=== PATIENT | male | born 1950 | race Two or more races ===

== ENCOUNTER 2021-02-03 15:22 | Inpatient (IN) | payer MEDICARE, OTHER ==
[~2021-02-03] VITALS: Ht 170.2 cm; Wt 78.5 kg
[2021-02-03 16:17] LABS: BASOPHILS % 0.4 % (0.0-2.0); EOSINOPHILS % 0.1 % (0.0-5.0); HEMATOCRIT. 43.6 % (42.0-52.0); HEMOGLOBIN. 14.6 g/dL (14.0-18.0); LYMPHOCYTES % 9.6 % (20.0-50.0); MEAN CORPUSCULAR HEMOGLOBIN 30.9 pg (28.0-32.0); MEAN CORPUSCULAR VOLUME 92.3 fL (80.0-94.0); MONOCYTES % 6.6 % (2.0-8.0); NEUTROPHILS % 83.3 % (40.0-76.0); PLATELET 206 x1000/uL (130-400); RED BLOOD CELL COUNT 4.73 mill/uL (4.7-6.1); RED CELL DISTRIBUTION WIDTH 13.9 % (11.6-14.6)
[2021-02-03 16:24] LABS: CHLORIDE 107 mEq/L (98-107)
[2021-02-03 16:28] LABS: ETHANOL BLOOD < 10 mg/dL
[2021-02-03 17:32] LABS: CLARITY URINE CLEAR (CLEAR); COLOR URINE YELLOW (YELLOW); KETONES URINE NEGATIVE (NEGATIVE); LEUKOCYTE ESTERASE URINE NEGATIVE (NEGATIVE); NITRITE URINE POSITIVE (NEGATIVE); OCCULT BLOOD URINE 1+ (NEGATIVE); PROTEIN URINE 2+ (NEGATIVE); SPECIFIC GRAVITY URINE 1.047 (1.005-1.030); UROBILINOGEN URINE 0.2 E.U./dL (0.2-1.0)
[2021-02-03 17:48] LABS: *BARBITURATES SCREEN URINE NEGATIVE (NEGATIVE); *BENZODIAZEPINES SCREEN URINE NEGATIVE (NEGATIVE); *COCAINE SCREEN URINE NEGATIVE (NEGATIVE); METHADONE URINE SCREEN NEGATIVE (NEGATIVE)
[2021-02-03 17:50] LABS: *AMPHETAMINES SCREEN URINE NEGATIVE (NEGATIVE); CANNABINOID URINE SCREEN NEGATIVE (NEGATIVE); OPIATES URINE SCREEN NEGATIVE (NEGATIVE); PHENCYCLIDINE URINE SCREEN NEGATIVE (NEGATIVE)
[2021-02-03] MEDS ORDERED: HYDROCODONE/ACETAMINOPHEN 5/325MG TABLET PO PRN (20:15)
[2021-02-03] MEDS ORDERED: GUAIFENESIN 200MG/10ML SUGAR FREE UDC PO PRN (20:15)
[2021-02-03] MEDS ORDERED: ASPIRIN 300MG SUPP PR NR (20:15)
[2021-02-03] MEDS ORDERED: ACETAMINOPHEN 325MG TABLET PO PRN (20:15)
[2021-02-03] MEDS ORDERED: ONDANSETRON HCL 4MG/2ML INJ IV PRN (20:15)
[2021-02-03] MEDS ORDERED: IPRATROPIUM/ALBUTEROL 0.5-3(2.5)MG/3ML NEB HHN PRN (20:15)
[2021-02-03] MEDS ORDERED: MORPHINE SULFATE 2 MG/ML CPJ (NOT FOR IM USE) IV PRN (20:15)
[2021-02-03] MEDS ORDERED: DIPHENHYDRAMINE 50MG/ML VIAL IV PRN (20:15)
[2021-02-03] MEDS ORDERED: HYDRALAZINE 20MG/ML VIAL IV PRN (20:15)
[2021-02-03] MEDS ORDERED: DOCUSATE SODIUM 100MG CAPSULE PO PRN (20:15)
[2021-02-03] MEDS ORDERED: MAGNESIUM/ALUMINUM HYDROXIDE/SIMETHICONE 30ML UDC PO PRN (20:15)
[2021-02-03] MEDS: DEXT 5%/0.45% NACL 1000ML 1,000 ML IV SCH (20:15)
[2021-02-03] MEDS ORDERED: CEFAZOLIN 1000MG PREMIX 50 ML IV NR (20:15)
[2021-02-03] MEDS ORDERED: LORAZEPAM 2MG/ML CPJ IV PRN (20:15)
[2021-02-03] MEDS ORDERED: CLONIDINE 0.1MG TABLET PO PRN (20:15)
[2021-02-03] MEDS: ENOXAPARIN 40MG/0.4ML SYR SUBCUT SCH (21:00)
[2021-02-03] MEDS ORDERED: IOHEXOL-350 100 ML BOTTLE ONE (21:17)
[2021-02-04 00:41] VITALS: BP 105/72
[2021-02-04] MEDS: SODIUM CHLORIDE 0.9% INJ 3ML FLUSH IVF SCH ×4 (03:18→20:28)
[2021-02-04] MEDS: DEXT 5%/0.45% NACL 1000ML 1,000 ML IV SCH ×2 (03:20→03:21)
[2021-02-04 04:00] VITALS: BP 119/73
[2021-02-04 07:13] LABS: BASOPHILS % 0.5 % (0.0-2.0); EOSINOPHILS % 0.4 % (0.0-5.0); HEMATOCRIT. 41.7 % (42.0-52.0); HEMOGLOBIN. 14.4 g/dL (14.0-18.0); LYMPHOCYTES % 10.8 % (20.0-50.0); MEAN CORPUSCULAR HEMOGLOBIN 32.2 pg (28.0-32.0); MEAN CORPUSCULAR VOLUME 93.3 fL (80.0-94.0); MEAN PLATELET VOLUME 9.5 fl (7.4-10.4); MONOCYTES % 7.3 % (2.0-8.0); PLATELET 196 x1000/uL (130-400); RED BLOOD CELL COUNT 4.47 mill/uL (4.7-6.1); RED CELL DISTRIBUTION WIDTH 13.9 % (11.6-14.6)
[2021-02-04 08:00] VITALS: BP 150/75
[2021-02-04] MEDS: ASPIRIN 81MG EC TABLET PO SCH (09:35)
[2021-02-04 11:57] LABS: T4 FREE 1.18 ng/dL (0.76-1.46)
[2021-02-04 12:00] VITALS: BP 156/82
[2021-02-04 12:07] LABS: CHLORIDE 108 mEq/L (98-107); HDL CHOLESTEROL 66 mg/dL (40-59); LDL CHOLESTEROL 67 mg/dL (5-100)
[2021-02-04] MEDS ORDERED: POTASSIUM CHLORIDE 20MEQ TABLET SR PO NR (15:00)
[2021-02-04 16:00] VITALS: BP 110/74
[2021-02-04 17:18] LABS: CREATINE KINASE MB FRACTION 2.7 ng/mL (0.5-3.6)
[2021-02-04 17:19] LABS: CREATINE KINASE 299 IU/L (39-308)
[2021-02-04 20:00] VITALS: BP 146/65
[2021-02-04] MEDS: ENOXAPARIN 40MG/0.4ML SYR SUBCUT SCH (20:28)
[2021-02-05] VITALS: BP 156/71
[2021-02-05 04:00] VITALS: BP 152/68
[2021-02-05] MEDS: SODIUM CHLORIDE 0.9% INJ 3ML FLUSH IVF SCH ×3 (05:26→22:00)
[2021-02-05] MEDS: DEXT 5%/0.45% NACL 1000ML 1,000 ML IV SCH (05:27)
[2021-02-05 07:05] LABS: BASOPHILS % 0.4 % (0.0-2.0); EOSINOPHILS % 0.7 % (0.0-5.0); HEMATOCRIT. 44.4 % (42.0-52.0); LYMPHOCYTES % 16.1 % (20.0-50.0); MEAN CORPUSCULAR HEMOGLOBIN 31.5 pg (28.0-32.0); MEAN CORPUSCULAR VOLUME 93.2 fL (80.0-94.0); MEAN PLATELET VOLUME 9.6 fl (7.4-10.4); MONOCYTES % 8.1 % (2.0-8.0); NEUTROPHILS % 74.7 % (40.0-76.0); PLATELET 189 x1000/uL (130-400); RED BLOOD CELL COUNT 4.77 mill/uL (4.7-6.1)
[2021-02-05 07:09] LABS: CHLORIDE 110 mEq/L (98-107)
[2021-02-05 07:23] LABS: CREATINE KINASE 228 IU/L (39-308)
[2021-02-05 07:24] LABS: CREATINE KINASE MB FRACTION 2.5 ng/mL (0.5-3.6)
[2021-02-05 07:46] LABS: VITAMIN B12 SERUM 236 pg/mL (211-911)
[2021-02-05 08:00] VITALS: BP 111/79
[2021-02-05] MEDS: ASPIRIN 81MG EC TABLET PO SCH (08:48)
[2021-02-05 12:00] VITALS: BP 104/76
[2021-02-05] MEDS: CARVEDILOL 3.125 MG TABLET PO SCH ×2 (13:26→23:29)
[2021-02-05] MEDS: LOSARTAN POTASSIUM 50 MG TABLET PO SCH (13:26)
[2021-02-05] MEDS ORDERED: NALOXONE HCL 0.4MG/ML VIAL IV PRN (13:45)
[2021-02-05 16:00] VITALS: BP 131/76
[2021-02-05 18:05] LABS: CREATINE KINASE 187 IU/L (39-308)
[2021-02-05 18:07] LABS: CREATINE KINASE MB FRACTION 2.2 ng/mL (0.5-3.6)
[2021-02-05 20:00] VITALS: BP 136/73
[2021-02-05] MEDS: ENOXAPARIN 40MG/0.4ML SYR SUBCUT SCH (21:00)
[2021-02-06] VITALS: BP 136/75
[2021-02-06] MEDS: DEXT 5%/0.45% NACL 1000ML 1,000 ML IV SCH (03:48)
[2021-02-06 04:00] VITALS: BP 140/69
[2021-02-06 06:35] LABS: BASOPHILS % 0.4 % (0.0-2.0); EOSINOPHILS % 1.3 % (0.0-5.0); HEMATOCRIT. 42.2 % (42.0-52.0); HEMOGLOBIN. 14.5 g/dL (14.0-18.0); LYMPHOCYTES % 19.5 % (20.0-50.0); MEAN CORPUSCULAR HEMOGLOBIN 32.2 pg (28.0-32.0); MEAN CORPUSCULAR VOLUME 94.1 fL (80.0-94.0); MEAN PLATELET VOLUME 9.6 fl (7.4-10.4); MONOCYTES % 8.3 % (2.0-8.0); NEUTROPHILS % 70.5 % (40.0-76.0); PLATELET 181 x1000/uL (130-400); RED BLOOD CELL COUNT 4.49 mill/uL (4.7-6.1); RED CELL DISTRIBUTION WIDTH 13.8 % (11.6-14.6)
[2021-02-06] MEDS: CYANOCOBALAMIN 100MCG TABLET PO SCH (06:49)
[2021-02-06] MEDS: SODIUM CHLORIDE 0.9% INJ 3ML FLUSH IVF SCH ×3 (06:50→22:03)
[2021-02-06 08:00] VITALS: BP 132/73
[2021-02-06] MEDS: ASPIRIN 81MG EC TABLET PO SCH (09:16)
[2021-02-06] MEDS: CARVEDILOL 3.125 MG TABLET PO SCH ×2 (09:16→21:45)
[2021-02-06] MEDS: LOSARTAN POTASSIUM 50 MG TABLET PO SCH (09:16)
[2021-02-06 12:00] VITALS: BP 131/72
[2021-02-06 16:00] VITALS: BP 141/75
[2021-02-06 20:00] VITALS: BP 131/68
[2021-02-06] MEDS: ENOXAPARIN 40MG/0.4ML SYR SUBCUT SCH (21:46)
[2021-02-07] VITALS: BP 111/78
[2021-02-07 04:00] VITALS: BP 125/69
[2021-02-07] MEDS: SODIUM CHLORIDE 0.9% INJ 3ML FLUSH IVF SCH ×3 (06:04→20:47)
[2021-02-07] MEDS: CYANOCOBALAMIN 100MCG TABLET PO SCH (06:10)
[2021-02-07 08:14] VITALS: BP 125/65
[2021-02-07] MEDS: ASPIRIN 81MG EC TABLET PO SCH (08:49)
[2021-02-07] MEDS: CARVEDILOL 3.125 MG TABLET PO SCH ×2 (08:49→20:45)
[2021-02-07] MEDS: LOSARTAN POTASSIUM 50 MG TABLET PO SCH (08:49)
[2021-02-07 12:00] VITALS: BP 118/68
[2021-02-07] MEDS ORDERED: ASPI-1497 MT (12:37)
[2021-02-07] MEDS ORDERED: COR3 MT (12:37)
[2021-02-07] MEDS ORDERED: LOSA25TA3 MT (12:37)
[2021-02-07] MEDS ORDERED: ATOR10TA MT (12:37)
[2021-02-07 16:00] VITALS: BP 146/77
[2021-02-07 20:00] VITALS: BP 153/83
[2021-02-07] MEDS: DEXT 5%/0.45% NACL 1000ML 1,000 ML IV SCH (20:15)
[2021-02-07] MEDS: ENOXAPARIN 40MG/0.4ML SYR SUBCUT SCH (20:46)
[2021-02-08] VITALS: BP 143/75
[2021-02-08 04:00] VITALS: BP 146/77
[2021-02-08] MEDS: SODIUM CHLORIDE 0.9% INJ 3ML FLUSH IVF SCH ×2 (06:22→14:00)
[2021-02-08] MEDS: CYANOCOBALAMIN 100MCG TABLET PO SCH (06:22)
[2021-02-08 08:00] VITALS: BP 134/71
[2021-02-08] MEDS: ASPIRIN 81MG EC TABLET PO SCH (08:36)
[2021-02-08] MEDS: CARVEDILOL 3.125 MG TABLET PO SCH (08:36)
[2021-02-08] MEDS: LOSARTAN POTASSIUM 50 MG TABLET PO SCH (08:36)
[2021-02-08 12:00] VITALS: BP 141/75
[2021-02-08 16:00] VITALS: BP 135/71
[2021-02-08 18:11] VITALS: BP 129/70
== END 2021-02-08 18:50 | disposition home or self-care (01) | DRG 64 ==
LOC: ER 15:22 → 7EST 18:24 → EDBEDREQSVC 18:38 → EDBEDREQ 18:38 → ENRESERV 21:25
PROVIDERS: ADMIT Internal Medicine; ATTEND Internal Medicine
PROC: 4A10X4Z Monitoring of Central Nervous Electrical Activity, External Approach (ICD-10-PCS; principal; 2021-02-06)
DX: I63.9 Cerebral infarction, unspecified (principal); I61.9 Nontraumatic intracerebral hemorrhage, unspecified; G92.8 Other toxic encephalopathy; J84.9 Interstitial pulmonary disease, unspecified; N39.0 Urinary tract infection, site not specified; I65.22 Occlusion and stenosis of left carotid artery; E78.00 Pure hypercholesterolemia, unspecified; E78.5 Hyperlipidemia, unspecified; E87.6 Hypokalemia; I49.3 Ventricular premature depolarization; R47.01 Aphasia; I11.9 Hypertensive heart disease without heart failure; I67.2 Cerebral atherosclerosis
CPT/HCPCS: 36415; 70496; 70498; 70551; 71045; 80048; 80053; 80061; 80305; 80320; 81003; 82550; 82553; 82607; 82962; 83036; 83880; 84439; 84443; 84484; 85025; 85379; 92610; 93005; 93306; 93970; 95816; 97162; 99291; J0690; J1650; Q9967; G0480